=== PATIENT | male | born 1990 | race Caucasian/White ===

== ENCOUNTER 2020-04-01 21:30 | Emergency (ER) | payer MEDICAID ==
[~2020-04-01] VITALS: Ht 177.8 cm; Wt 99.8 kg
[2020-04-01 21:36] VITALS: Ht 177.8 cm; Wt 99.8 kg
[2020-04-02 00:14] VITALS: BP 128/63
== END 2020-04-02 00:37 | disposition home or self-care (01) ==
LOC: ED 21:30
DX: F10.129 Alcohol abuse with intoxication, unspecified (principal); Y90.9 Presence of alcohol in blood, level not specified; R11.0 Nausea; R42 Dizziness and giddiness; R10.13 Epigastric pain
CPT/HCPCS: J2405; J7030